=== PATIENT | male | born 1940 | race Caucasian/White ===

== ENCOUNTER 2016-10-10 05:35 | Inpatient (IN) | payer MEDICARE, OTHER ==
[2016-10-10] VITALS (20 sets, daily range): BP systolic 88–156; BP diastolic 47–95; PULSE 65–110; RESP 14–20; O2SAT 95–100
[~2016-10-10] VITALS: Ht 175.3 cm; Wt 65.5 kg
[2016-10-10] MEDS: Lactated Ringer's 1,000 ML IV SCH ×4 (05:00→11:35)
[~2016-10-10 05:35] MED LIST: FINA5TAB9 PO
[2016-10-10] MEDS ORDERED: CeFAZolin Inj 2 GM in IV Premix 1 EACH IV ONE (06:00)
--- NOTE | 2016-10-10 07:00 | PCM.HPANE ---
Patient Data Date of Service: Oct 10, 2016 Surgeon Admitting Provider: Attending Provider:Kenia Gramajo MD Primary Care Physician:Nadiya Berman MD Other Provider:Josafat Medley Anesthesia Reason for Visit Right Renal Mass Ht/WT & BMI Height (Feet): 5 Height (Inches): 9.00 Weight (Kilograms): 62.0 Body Mass Index 20.00 Allergies Coded Allergies: No Known Allergies (Verified Allergy, Unknown, 10/07/16) Diabetes History Hx Diabetes?: No MRSA MRSA: No Medications Home Meds Incl Beta Tristian: No Reported Medications Finasteride 5 Mg Tablet5 Mg PO DAILY 30 Days Ref 0 10/07/16 History History of ENT Problems?: No Hx of Heart Problems?: No Hx of Respiratory Problem?: Yes Respiratory History: Positive for:: Cough (lifetime smoker) Hx Neurologic Problems?: No Hx of GI Problems?: No Hx of Problems?: Yes Other Pertinent History: right renal mass 09/2016 Male Hx: Positive for:: Prostate Problems Denies:: Scrotal Mass Testicular Surgery Hx of Psycho/Social Problems?: No Hx Any Other Health Problems?: No Other History: Positive for:: Cancer (right renal mass 09/2016) Hx Diabetes: No Hx Alcohol Use: No Stop/Bang Treated for Sleep Apnea?: No Do You Have a CPAP Machine?: No S-Snoring: Do You Snore Loudly: No T-Tired: feel tired, fatigued: No O-Obsered: Observed not breath: No P-Blood Pressure: treated: No B- Body Mass Index > 35 kg/m2: No A- Age over 50: Yes N- Neck Large Circumference: No G- Gender Male: Yes MERVIN Total Score: 2 MERVIN Risk Assessment: Low Risk, <3 Yes Risk Assessment Category Category 1A: Patient has history of documented sleep apnea, and HAS NOT received any narcotic, sedative or anesthesia administration during this stay. Category 1B: Patient has history of documented sleep apnea, and HAS received any narcotic , sedative or anesthesia administration during this stay Category 2: Patient has SUSPECTED Obstructive Sleep Apnea, and HAS received any narcotic , sedative or anesthesia administration during this stay. Category 3: Patient has SUSPECTED Obstructive Sleep Apnea and HAS NOT received narcotic, sedative or anesthesia administration during this stay. Category 4: Outpatient in Procedural Areas with known sleep apnea or who screen positive for High Risk via the STOP/BANG questionnaire. Exam Exam Vital Signs Vital Signs Date Time Temp Pulse Resp B/P Pulse Ox O2 Delivery O2 Flow Rate FiO2 10/10/16 05:58 36.7 110 16 156/76 96 Room Air General Appearance: Alert, Oriented X3, Cooperative, No Acute Distress HEENT/AIRWAY: MP 2 (Fullbeard), Neck Movement (ROM WNL) Lungs: Diminished, Coarse, Wheezes (Expiratory x4) Heart: Normal S1, Normal S2 (distant) Meds/Labs/Diagnostics Admission Meds Current Medications Lactated Ringer's (Lr) 1,000 ml @ 120 mls/hr [id number] IV Last administered on t 05:13; Start 10/10/16 at 05:00; Stop 10/10/16 at 13:19 Plan Impression Patient chart reviewed, patient interviewed and anesthestic plan with risks, benefits, and alternatives discussed, and informed consent obtained. NPO Status: 10/09 at 1700 ASA Physical Status: ASA3 Severe Disease Anesthetic Plan: GA, Epidural Bene/Risks/Altern/Consents: Yes HP Complete Prior to Induction: Yes Vignesh Espino DO Oct 10, 2016 07:00
[2016-10-10] MEDS ORDERED: Morphine PF 1 mg/mL 10 mL Inj ONE (07:08)
[2016-10-10] MEDS ORDERED: Ondansetron 2 mg/mL 2 mL Inj ONE (07:08)
[2016-10-10] MEDS ORDERED: fentaNYL-PF 50 mCg/mL 2 mL Inj ONE (07:08)
[2016-10-10] MEDS ORDERED: Propofol 10,000 mCg/mL 20 mL Inj ONE (07:08)
[2016-10-10] MEDS ORDERED: Dexamethasone 4 mg/mL Inj ONE (07:08)
[2016-10-10] MEDS ORDERED: Lactated Ringer's 1,000 ML IV SCH (09:52)
[2016-10-10] MEDS ORDERED: Lactated Ringer's 500 ML IV PRN (09:52)
[2016-10-10] MEDS ORDERED: HYDROmorphone 1 mg/mL Inj IVPUSH PRN ×2 (09:55→10:10)
[2016-10-10] MEDS ORDERED: fentaNYL-PF 50 mCg/mL 2 mL Inj IVPUSH PRN (09:55)
[2016-10-10] MEDS ORDERED: Labetalol 5 mg/mL 4 mL Inj IV PRN (09:55)
[2016-10-10] MEDS ORDERED: Phenylephrine 10,000 mCg/mL Inj IVPUSH PRN (09:55)
[2016-10-10] MEDS ORDERED: Atropine 0.4 mg/mL Inj IVPUSH PRN (09:55)
[2016-10-10] MEDS ORDERED: Dexamethasone 4 mg/mL Inj IVPUSH PRN (09:55)
[2016-10-10] MEDS ORDERED: MetoCLOpramide 5 mg/mL 2 mL Inj IVPUSH PRN (09:55)
[2016-10-10] MEDS ORDERED: Ondansetron 2 mg/mL 2 mL Inj IVPUSH PRN ×2 (09:55→10:10)
[2016-10-10] MEDS ORDERED: EPHEDrine Sulfate 50 mg/mL Inj IVPUSH PRN (09:55)
--- NOTE | 2016-10-10 10:41 | PCM.ANEP1 ---
Post Anesthesia Phase 1 PACU Phase 1 Assessment Date of Service: Oct 10, 2016 Vital Signs Vital Signs Date Time Temp Pulse Resp B/P Pulse Ox O2 Delivery O2 Flow Rate FiO2 10/10/16 05:58 36.7 110 16 156/76 96 Room Air Level of Alertness: Awake, talking HORNER's with Equal Strength: Yes Pain: No Nausea or Vomiting: No Oxygen Delivery: Simple Mask (6l) Lungs: Diminished, Coarse, Wheezes (Expiratory x4) Dermatome Level: T6 (Xyphoid Process) (by epidural bolus in OR6. Catheter removed with tip intact.) Summary Pt Tx to PACU, report to RN, Phenylephrine gtt continued at scant rate (20ug/min ) Pt agitated on arousal, but non-combative. Vignesh Espino DO Oct 10, 2016 10:41
--- NOTE | 2016-10-10 11:29 | OP ---
[address] [address] OPERATIVE REPORT PATIENT: Lowell COHEN V : 1940 MR#: [id number] ADMIT: 10/10/2016 JOB ID: [id number] DATE OF SURGERY: 10/10/2016 PREOPERATIVE DIAGNOSIS(ES): Right renal mass. POSTOPERATIVE DIAGNOSIS(ES): Right renal mass. PROCEDURE PERFORMED: 1. Right open radical nephrectomy. 2. Lysis of adhesions. SURGEON: Kenia Gramajo MD CERTIFIED PROSTHETIST: Dr. Henry Mercado (his expert assistance was required for manipulation of the tissues and exposure). FINDINGS: Right renal mass. ANESTHESIA: 1. General. 2. Epidural. ESTIMATED BLOOD LOSS: 50 mL. DRAINS: Duarte catheter to the bladder. SPECIMEN: Right kidney and mass. COMPLICATIONS: None. CONDITION: Stable. INDICATION FOR PROCEDURE: The patient is a 76-year-old gentleman with a right renal mass. After weighing his options, the patient wished to undergo a right radical nephrectomy. DESCRIPTION OF PROCEDURE: After informed consent was obtained, the patient was taken to the operating room. A time-out was performed identifying correct patient, surgical site, and procedure. General anesthesia was smoothly induced. He was placed in a supine position. All pressure points were identified and appropriately padded. A Duarte catheter was placed into the patient's bladder and set to dependent drainage. His abdomen and flank were then prepped and draped in the usual sterile fashion. Two fingerbreadths inferior to the right subcostal margin a 4-5 inch incision was made with a 10 blade. Bovie electrocautery was used to incise the subcutaneous fat, fascia, and muscle layers. Intraperitoneal access was gained. The Bookwalter was positioned over the patient with care being taken not to directly rest it upon the patient. The liver was quite inferior in location anteriorly. There were adhesions from the peritoneum at the superior aspect of the kidney. These adhesions spanned from anterior to posterior, and they were taken down with Bovie electrocautery. Next, the white line of Toldt was incised and the colon was manipulated medially and inferiorly. The right kidney and mass could be seen and palpated quite easily given the patient's thin body habitus. Dissection commenced at the inferior aspect releasing the cone of Gerradha's. The ureter was visualized, and it was treated with an Endo-CONY vascular load. There were parasitic vessels inferiorly as well. These were later clipped multiple times to ensure proper ligation. The dissection then commenced medially. The mesentery was dissected away revealing the right renal vein. Just posterior to it was the right renal artery. Both were dissected out with right angle and Bovie electrocautery. A Endo-CONY vascular load was then applied to the hilum and taken with the vein and artery together. Next, the dissection commenced posteriorly and superiorly as well as medially. The adrenal gland was seen. It was preserved with the patient. The Endo-CONY was then used again in the superior medial aspect as there were some small vessels there. LigaSure was also used to aid the dissection. Ultimately the kidney was removed with Gerota's fascia as right kidney and mass. The renal fossa was then copiously irrigated with saline. FloSeal was applied over the hilum and fossa. Surgicel was placed at the hilum as well and under the liver. The abdominal contents were then replaced into orthotopic position. The flex was then taken out of the table, and looped 0 PDS x2 were used to close the fascial layers in two layers. The wound was irrigated copiously with saline. The Chavez layer was then closed with interrupted 3-0 chromic. The skin was then closed with subcuticular 4-0 Monocryl in running fashion. The wound was then dressed with Dermabond. The patient was then reversed from general anesthesia and taken to PACU in good and stable condition. All sponge, needle, and instrument counts were correct at the end of procedure. ABRIL
--- NOTE | 2016-10-10 11:30 | NUR ---
received to room 1017 from PACU pt alert, comfortable, denies pain or nausea, taking clear liquids without nausea, incision looks good, LSs coarse with wheezes, denies SOB, he is a smoker
--- NOTE | 2016-10-10 11:32 | PCM.ANEP2 ---
Post Anesthesia Evaluation ASA/CMS Post Anesthesia Date of Service: Oct 10, 2016 VS in Patient's Normal Range?: Yes Resp Stable; Airway Patent?: Yes CV Function & Hydration Stable: Yes Mental Status Recovered?: Yes Pain control Satisfactory?: Yes N/V Control Satisfactory?: Yes Vignesh Espino DO Oct 10, 2016 11:32
[2016-10-10 11:34] LABS: APPEARANCE,URINE HAZY (CLEAR,HAZY); COLOR,URINE DARK YELLOW (YELLOW); OCCULT BLOOD,URINE LARGE (NEGATIVE); PH,URINE 6.5 (5.0-8.0); UROBILINOGEN,URINE NORMAL (NORMAL)
[2016-10-10] MEDS: D5 0.45% NaCl + KCl 20 mEq/L 1,000 ML IV SCH ×3 (13:35→21:23)
--- NOTE | 2016-10-10 18:48 | NUR ---
emesis denied nausea but had 300cc emesis after eating 3 popsickles, he said he just ate them too fast, UOP low but OK 250cc reddish brown urine, appearing it administrator in color toward end of shift
[2016-10-11 00:45] VITALS: BP 147/69; PULSE 96; RESP 16; O2SAT 97
--- NOTE | 2016-10-11 02:49 | NUR ---
Emesis Denies nausea however produced emesis after drinking apple juice. There has not been a second occurrence after switching back to water. Patient encouraged to cough every hour accompanied with deep breaths. Denies CP, SOB. Abdominal discomfort limited to coughing, refuses pain medication at this time.
[2016-10-11] MEDS: D5 0.45% NaCl + KCl 20 mEq/L 1,000 ML IV SCH ×3 (05:57→22:57)
[2016-10-11 08:35] VITALS: BP 161/70; PULSE 90; RESP 16; O2SAT 94
--- NOTE | 2016-10-11 11:19 | PCM.PNSURG ---
Subjective Date of Service: Oct 11, 2016 Date of Service: Oct 11, 2016 Visit Information: Reason for Visit Right Renal Mass Surgery/Surgery Date R OPEN RADICAL NEPHRECTOMY Post-Op Day # 1 Date of Admission: Oct 10, 2016 at 12:19 Hospital Day # 2 Subjective: Mr Ramos states he has no pain. He has passed a flatus. He is tolerating CLD w/ o N/V. He hasn't ambulated today. He has performed IS. Postop General: No Complaints Gastrointestinal: No N/V, Passing Flatus Pain Management: PO, IV Push Objective Vital Sign- Last 8 Hours Date Time Temp Pulse Resp B/P Pulse Ox O2 Delivery O2 Flow Rate FiO2 10/11/16 08:35 37.1 90 16 161/70 94 Room Air 10/11/16 05:13 Supplement Oxygen Intake and Output- Last 8 Hour 10/11/16 Cumulative From/Thru 07:00 10/07/16 10:22 - 10/11/16 06:06 Intake Total 1402 ml 3674 ml Output Total 580 ml Balance 1402 ml 3094 ml Intake Oral 400 ml IV Total 1402 ml 3274 ml Output Urine Total 280 ml Emesis 300 ml General: Alert Abdomen: Benign, Soft, Other (wound c/d/i w/o erythema) Extremities: Warm Neuro: Cranial Nerves 2-12 nl Catheters: None Result Diagram: 10/11/16 0641 Assessment & Plan Impression POD#1 RIGHT open radical Nx Problems: Plan We discussed pain control - He has no pain at present - Epidural was removed prior to arriving to floor yesterday - He understands the pain regimen available to him We discussed goals for today, and I wrote them on the board - IS 10x/hr while awake - Ambulate, progressively into the hallways 3x/day BMP tomorrow Kenia Gramajo MD Oct 11, 2016 11:19
[2016-10-11 13:08] VITALS: BP 155/76; PULSE 116; RESP 16; O2SAT 96
--- NOTE | 2016-10-11 16:02 | NUR ---
Social Work- Initial Assessment Data: See Initial Assessment. Pt is a 76 year old male admitted 10/10/16 for right renal mass per H&P. Pt's insurance is Medicare and [facility] [employer] [facility]. PCP is Nadiya Berman MD. EMR reviewed. PUSHPA met with pt and SO Wanda Cruz [phone] at bedside to discuss discharge planning, SW role explained. Pt alert and oriented x3. Pt resides in [place] with SO where he remains independent with his ADLs. Pt uses no DME and drives. Pt has no HH or SNF experience. SW discussed DPOA and requested completed DPOA. Pt requested priority boarding paperwork for ferry to [place]. SW to provide this before discharge. Priority Boarding paperwork in folder. SW put phone number and plan on whiteboard in room. Pt to discharge home with SO to transport via POV. No anticipated discharge needs, SW continues to follow. Assessment: [place]. Plan: Pt needs priority boarding paperwork prior to discharge. Pt to discharge home with SO to transport via POV. No anticipated discharge needs, SW continues to follow. AL Alvarez Addendum: 10/11/16 at 1610 by FROY DUARTE Amended: Links added.
--- NOTE | 2016-10-11 17:06 | NUR ---
ACTIVITY//GI Patient's morin was removed @ 0700, able to void approx 300ml without any bladder discomfort. Using urinal at bedside. Encouraged use of I.S. Continues with CPOX, is on RA with O2 sats stable @ 95%. Patient was out of bed and ambulated in room and into bathroom, gait steady. Upgraded diet to full liquids without any nausea/vomiting. Minimal complaints of pain at incision site with coughing. Medicated with tylenol which was effective.
[2016-10-11 17:14] VITALS: BP 196/92; PULSE 105; RESP 20; O2SAT 93
[2016-10-11] MEDS: oxyCODONE-Acetamin 5-325 mg Tablet PO PRN (18:15)
[2016-10-11 21:05] VITALS: BP 181/85; PULSE 108; RESP 18; O2SAT 94
[2016-10-12] MEDS: oxyCODONE-Acetamin 5-325 mg Tablet PO PRN ×4 (00:53→12:06)
[2016-10-12 01:20] VITALS: BP 168/83; PULSE 112; RESP 18; O2SAT 93
--- NOTE | 2016-10-12 05:24 | NUR ---
Brisk UOP 2200 ML's of pale yellow urine on nights. Tolerating PO fluids without nausea - IV TKO'd.
[2016-10-12 05:42] VITALS: BP 161/87; PULSE 110; RESP 16; O2SAT 95
[2016-10-12] MEDS: D5 0.45% NaCl + KCl 20 mEq/L 1,000 ML IV SCH (10:10)
[2016-10-12 10:21] VITALS: BP 154/78; PULSE 105
[2016-10-12 11:08] VITALS: BP 160/78; PULSE 102; RESP 18; O2SAT 96
--- NOTE | 2016-10-12 11:40 | NUR ---
LIZZ signed. Kadie Ng QUALITY ASSURANCE DIRECTOR
--- NOTE | 2016-10-12 12:45 | PCM.PNSURG ---
Subjective Date of Service: Oct 12, 2016 Date of Service: Oct 12, 2016 Visit Information: Reason for Visit Right Renal Mass Surgery/Surgery Date R OPEN RADICAL NEPHRECTOMY Post-Op Day # 2 Date of Admission: Oct 10, 2016 at 12:19 Hospital Day # 3 Subjective: Mr Ramos states his pain is controlled. He is ambulatory. He tolerates regular diet w/o N/V. He wishes to go home today. Gastrointestinal: Good Appetite Pain Management: PO, IV Push Postop Activity: Ambulating Independently Objective Vital Sign- Last 8 Hours Date Time Temp Pulse Resp B/P Pulse Ox O2 Delivery O2 Flow Rate FiO2 10/12/16 11:08 36.9 102 18 160/78 96 Room Air 10/12/16 10:21 105 154/78 10/12/16 05:42 37.2 110 16 161/87 95 Room Air Intake and Output- Last 8 Hour 10/12/16 Cumulative From/Thru 07:00 10/07/16 10:22 - 10/12/16 05:48 Intake Total 745 ml 6668 ml Output Total 2650 ml 3930 ml Balance -1905 ml 2738 ml Intake Oral 200 ml 1236 ml IV Total 545 ml 5432 ml Output Urine Total 2650 ml 3630 ml Emesis 300 ml # Bowel Movements 0 Neck: Supple Abdomen: Benign, Soft, Appropriately tender (wound c/d/i) Neuro: Cranial Nerves 2-12 nl (though SAMISH) Catheters: None Result Diagram: 10/12/16 0603 Assessment & Plan Impression POD#2 RIGHT radical Nx Problems: Plan DC planning today We discussed his HTN - Given his lack of medical care/avoidance of health care, he was likely hypertensive before - We talked about Norvasc 5 mg - I advised him to establish care with PCP within 1 wk. He states he will be seeing Dr Berman. Kenia Gramajo MD Oct 12, 2016 12:45
--- NOTE | 2016-10-12 12:46 | PCM.DISURG ---
Surgical Discharge Instruction Date of Service Oct 12, 2016 Dates of Hospitalization Date of Hospital Admission Oct 10, 2016 at 12:19 Providers Admitting Physician: Kenia Gramajo MD Primary Care Physician: Nadiya Berman MD Attending Physician: Kenia Gramajo MD Discharge Diagnosis Discharge Diagnosis RIGHT renal mass Post Operative diagnosis RIGHT renal mass Activity Discharge Activity-General: Try not to overdue, Be up and about, Balance rest and activity, No lifting >10 pounds for 4-6 weeks, No driving while taking narcotic Dressing and Incisional Care Hygiene: May shower, DO NOT soak incision under water, NO bathtub, hot tub or whirlpool Follow Up Plan Follow Up Plan [address] Gramajo Call your provider for: Fever, Chills, Vomiting, Increasing wound pain, Discharge @ incision, pus discharge Kenia Gramajo MD Oct 12, 2016 12:46
--- NOTE | 2016-10-12 12:48 | PCM.DC.SUR ---
Discharge Summary Date of Service: Oct 12, 2016 Date of Hospital Admission: Oct 10, 2016 at 12:19 Date of Operation(s): 10/10/16 Date of Discharge: 10/12/16 Diagnosis at Time of Discharge RIGHT renal mass Problems: Operation RIGHT open radical nephrectomy Brief History and Physical: Mr Ramos is a 76 M who presented with gross hematuria. Evaluation revealed a 6- 7 cm RIGHT renal mass. Hospital Course: He underwent radical Nx and tolerated it well. Postop, his Cr was normal. His pain was controlled. He tolerated regular diet. POD#2 he wished to go home. Pathology: Pending. Disposition: Home Follow-up Plan: 2 wks urology clinic 1 wk PCP Finasteride (Finasteride) 5 Mg Tablet 5 MG PO DAILY (Reported) Kenia Gramajo MD Oct 12, 2016 12:48
--- NOTE | 2016-10-12 13:15 | NUR ---
DISCHARGE Patient's IV was removed and gauze dressing applied. Got dressed independently. Pain well controlled with 1 tab percocet. Reviewed discharge paperwork with patient and , including activity restrictions and follow up appointments. Patient acknowledged. Hard copy of Rx were sent with patient. Given ferry boarding pass to for priority loading. Took all of personal belongings and ambulated in hallway and transferred into wheelchair. Took outside and left with in personal vehicle.
--- NOTE | 2016-10-12 13:21 | NUR ---
Social Work- Readiness for Discharge/Discharge Data: EMR reviewed. Pt is on day 2 of hospitalization for right renal mass per H&P. Pt to discharge home today. Priority boarding paperwork provided. Pt to discharge home with SO to transport via POV. No discharge needs. All updated and agreeable to plan. Assessment: [place] Plan: Pt to discharge home today. Pt to discharge home with SO to transport via POV. No discharge needs. All updated and agreeable to plan. AL Alvarez
--- NOTE | 2016-10-13 15:21 | PATH ---
SURGICAL PATHOLOGY Attending Physician:Kenia Gramajo, CASE STATUS: Signed Out PATIENT NAME: Lowell COHEN V. PID: [id number] : 1940 DATE COLLECTED:10/10/2016 15:21 SPECIMEN: Kidney, Radical Nephrectomy for Tumor CLINICAL HISTORY: RIGHT RENAL MASS 1). 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 FEATURES: NOT IDENTIFIED TUMOR NECROSIS: PRESENT HISTOLOGIC GRADE (YOLANDA NUCLEAR GRADE): G4 MICROSCOPIC TUMOR EXTENSION: TUMOR EXTENSION INTO PERINEPHRIC TISSUES (THROUGH RENAL CAPSULE) AND INTO RENAL VEIN MARGINS: MARGINS ARE UNINVOLVED BY INVASIVE CARCINOMA LYMPHVASCULAR INVASION, EXCLUDING RENAL VEIN AND IVC: NOT IDENTIFIED PATHOLOGIC STAGE (pTNM): PRIMARY TUMOR: pT3a REGIONAL LYMPH NODES: pNX NUMBER OF LYMPH NODES EXAMINED: 0 PATHOLOGIC FINDINGS IN NON-NEOPLASTIC KIDNEY: VASCULAR DISEASE: ARTERIOSCLEROSIS OF RENAL ARTERY ICD10 code C64.1 NOTE: As part of a routine quality lab technician, Dr. Ryan Restrepo has also reviewed this case and agrees with the diagnosis. GROSS DESCRIPTION: The specimen is received in formalin, labeled with the patient's name, sublabeled as right kidney and consists of a kidney (11.7 x 8.3 x 5.5 cm) with attached ureter (length-5.0 cm, diameter-up to 1.3 cm), renal artery (length-3.8 cm, diameter-0.3 cm), renal vein (length-0.7 cm, diameter-1.3 cm) and renal adipose (up to 5.2 cm in depth). The renal parenchyma appears red-brown and contains a variegated solid soft partially friable and hemorrhagic irregular mass (6.8 x 5.5 x 5.5 cm). The mass is located at the central lateral aspect, 4.3 cm from the ureteric, less than 0.1 cm from the arterial, and 3.8 cm from the venous resection margins. The mass involves the pelvis, sinus, and artery. The ureter is distended and contains irrigated solid friable hemorrhagic tissue. The mass pushes outward on the capsule beyond the normal renal contour but does not appear to extend through. The remaining parenchyma has normal architecture with no other nodules, masses or lesions identified. Section code: (A) ureter, renal artery, renal vein resection margins; (B) artery, serially sectioned, benefits representative; (C-H) mass, benefits representative; (I) normal kidney, benefits representative. 10/11/16 JM MICRO DESCRIPTION: See diagnosis. ICD-9 CODES: CPT CODES: 1: 75223 Electronically Signed Out Margi Bain MD [facility] [address], [place] [address] Technical component performed at [facility], [address] [place] [address] Ave[address], [place], [address]
== END 2016-10-12 13:20 | disposition home or self-care (01) | DRG 658 ==
LOC: SAS 05:35 → OSC 12:19
PROVIDERS: ADMIT Urology; ATTEND Urology
PROC: 0TT00ZZ Resection of Right Kidney, Open Approach (ICD-10-PCS; principal; 2016-10-10 07:15)
DX: C64.1 Malignant neoplasm of right kidney, except renal pelvis (principal); R31.0 Gross hematuria; F17.210 Nicotine dependence, cigarettes, uncomplicated